=== PATIENT | female | born 1960 | race Two or more races ===

== ENCOUNTER 2022-03-10 04:13 | Outpatient (CLI) | payer BC ==
[2022-03-10 08:22] LABS: HEMATOCRIT 39.7 % (31.2-41.9); MEAN CORPUSCULAR HEMOGLOBIN 29.1 uug (24.7-32.8); MEAN CORPUSCULAR VOLUME 87.4 fL (75.5-95.3); PLATELET COUNT (AUTO) 217 K/uL (179-408)
[2022-03-10 08:41] LABS: THYROID STIMULATING HORMONE 1.842 mIU/mL (0.358-3.740)
[2022-03-10 09:31] LABS: BILIRUBIN,TOTAL 0.3 mg/dL (0.2-1.0); CREATININE 0.6 mg/dL (0.6-1.3); POTASSIUM 3.9 mmol/L (3.5-5.1); TOTAL PROTEIN, SERUM 7.5 g/dL (6.4-8.2)
[2022-03-11 06:22] LABS: *BILIRUBIN,URIN NEGATIVE (NEGATIVE); *CLARITY,URINE CLEAR (CLEAR); *COLOR,URINE YELLOW (YELLOW); *KETONES,URINE NEGATIVE (NEGATIVE); *UROBILINOGEN,URINE 0.2 E.U./dl (NORMAL); LEUKOCYTE ESTERASE ,URINE NEGATIVE (NEGATIVE); NITRITE, URINE NEGATIVE (NEGATIVE)
[2022-03-11 06:29] LABS: *BLOOD, URINE TRACE (NEGATIVE); UGLUCOSE 3+ (NEGATIVE)
[2022-03-11 06:41] LABS: BACTERIA,URINE FEW /HPF (NONE SEEN); RBC,URINE 0-3 /HPF (0-3); SQUAMOUS EPITHELIAL CELL,UR FEW /HPF (NONE SEEN); WBC,URINE 0-3 /HPF (0-3)
[2022-03-12 13:06] LABS: *MICROALBUMIN, UR <3.0 ug/mL (Not Estab.)
[2022-03-13 15:33] LABS: CREATININE, URINE 12.7; MICROALBUMIN/CREAT RATIO, UR <24
== END 2022-03-10 23:59 | disposition home or self-care (01) ==
LOC: LAB 04:16 → ER 04:16 → EDSTATUS 07:49 → LAB 23:59
PROVIDERS: ATTEND Emergency Medicine
DX: Z00.01 Encounter for general adult medical examination with abnormal findings (principal); E13.9 Other specified diabetes mellitus without complications; E55.9 Vitamin D deficiency, unspecified; R12 Heartburn; Z79.899 Other long term (current) drug therapy
CPT/HCPCS: 36415; 82043; 82306; 82570; 82746; 84443; 85025

== ENCOUNTER 2022-11-18 09:59 | Emergency (ER) | payer BC, OTHER ==
[~2022-11-18] VITALS: Ht 154.9 cm; Wt 63.5 kg
[2022-11-18] MEDS ORDERED: METF-440 PO (10:28)
[2022-11-18] MEDS ORDERED: AMLO5TAB4 PO (10:28)
[2022-11-18] MEDS ORDERED: ATEN25TA PO (10:28)
[2022-11-18] MEDS ORDERED: OMEP20CA15 PO (10:28)
[2022-11-18] MEDS ORDERED: ASPI81TA31 PO (10:28)
[2022-11-18] MEDS ORDERED: LISI20TA30 PO (10:28)
--- NOTE | 2022-11-18 10:50 | NUR ---
1st contact with patient: AAOx4, resting comfortably on gurney while using her personal electronic device, respiration:easy, regular and unlabored, NAD. CT scan was done.Urine collected, pending blood draw by [email or web address].
[2022-11-18 11:19] LABS: HEMATOCRIT 41.4 % (31.2-41.9); MEAN CORPUSCULAR HEMOGLOBIN 28.5 uug (24.7-32.8); MEAN CORPUSCULAR VOLUME 87.5 fL (75.5-95.3); PLATELET COUNT (AUTO) 225 K/uL (179-408)
[2022-11-18 11:25] LABS: *BILIRUBIN,URIN NEGATIVE (NEGATIVE); *CLARITY,URINE CLEAR (CLEAR); *COLOR,URINE YELLOW (YELLOW); *KETONES,URINE NEGATIVE (NEGATIVE); *UROBILINOGEN,URINE 0.2 E.U./dl (NORMAL); LEUKOCYTE ESTERASE ,URINE NEGATIVE (NEGATIVE); NITRITE, URINE NEGATIVE (NEGATIVE); PH,URINE 5.5 (5.0-8.0)
[2022-11-18 11:35] LABS: *BLOOD, URINE TRACE (NEGATIVE)
[2022-11-18 11:37] LABS: UGLUCOSE 3+ (NEGATIVE)
[2022-11-18 11:56] LABS: CREATININE 0.6 mg/dL (0.6-1.3); POTASSIUM 3.8 mmol/L (3.5-5.1)
[2022-11-18 12:01] LABS: BILIRUBIN,DIRECT 0.1 mg/dL (0.0-0.2); BILIRUBIN,TOTAL 0.4 mg/dL (0.2-1.0); TOTAL PROTEIN, SERUM 7.3 g/dL (6.4-8.2)
[2022-11-18 12:36] LABS: BACTERIA,URINE NONE SEEN /HPF (NONE SEEN); RBC,URINE 0-3 /HPF (0-3); SQUAMOUS EPITHELIAL CELL,UR FEW /HPF (NONE SEEN); WBC,URINE NONE SEEN /HPF (0-3)
--- NOTE | 2022-11-18 12:41 | NUR ---
Patient discharged to home by Dr Tomas in stable condition. Written and verbal after care instructions given to patient. Patient is an actively employed nurse in our hospital. Patient verbalized understanding and compliance of instructions. Stressed follow up with primary doctor or return to ER for worsening s/s. Copies of all the tests results were given to patient.
== END 2022-11-18 12:41 | disposition home or self-care (01) ==
LOC: ER 10:05
DX: R10.12 Left upper quadrant pain (principal); I10 Essential (primary) hypertension; E11.9 Type 2 diabetes mellitus without complications; Z91.040 Latex allergy status; Z79.82 Long term (current) use of aspirin; Z79.899 Other long term (current) drug therapy
CPT/HCPCS: 36415; 83690; 85025; A4663